=== PATIENT | female | born 1965 | race Caucasian/White ===

== ENCOUNTER 2023-02-23 21:14 | Emergency (ER) | payer BC ==
[~2023-02-23] VITALS: Ht 165.1 cm; Wt 72.6 kg
[2023-02-23 22:07] LABS: BASOPHILS % (AUTO) 0.3 % (0.0-2.0); EOSINOPHILS % (AUTO) 0.2 % (0.0-7.0); HEMATOCRIT 31.4 % (31.2-41.9); HEMOGLOBIN 10.7 g/dL (10.9-14.3); LYMPHOCYTES # (AUTO) 1.8 K/uL (0.8-4.8); LYMPHOCYTES % (AUTO) 25.5 % (20.5-51.5); MEAN CORPUSCULAR HEMOGLOBIN 33.5 uug (24.7-32.8); MEAN CORPUSCULAR HGB CONC 34 g/dL (32.3-35.6); MEAN CORPUSCULAR VOLUME 97.8 fL (75.5-95.3); MONOCYTES # (AUTO) 0.3 K/uL (0.1-1.30); MONOCYTES % (AUTO) 4.9 % (0.0-11.0); NEUTROPHILS # (AUTO) 4.9 K/uL (1.8-8.9); NEUTROPHILS % (AUTO) 69.1 % (38.5-71.5); PLATELET COUNT (AUTO) 226 K/uL (179-408); RED BLOOD CELL COUNT(AUTO) 3.21 MIL/uL (3.63-4.92); RED CELL DISTRIBUTION WIDTH 20.5 % (12.3-17.7)
[2023-02-23 22:08] LABS: DIFFERENTIAL COMMENT 1
[2023-02-23 22:19] LABS: CALCIUM 8.7 mg/dL (8.5-10.1); CREATININE 1.1 mg/dL (0.6-1.3)
[2023-02-23 22:27] LABS: BILIRUBIN,TOTAL 0.9 mg/dL (0.2-1.0); MAGNESIUM 1.4 mg/dL (1.8-2.4); TOTAL PROTEIN, SERUM 5.7 g/dL (6.4-8.2)
[2023-02-23 22:30] LABS: THYROID STIMULATING HORMONE 3.106 mIU/mL (0.358-3.740)
[2023-02-23] MEDS ORDERED: LORAZEPAM 0.5 MG TABLET ONE (22:39)
[2023-02-23] MEDS ORDERED: LORAZEPAM 0.5 MG TABLET PO ONE (22:45)
[2023-02-23] MEDS ORDERED: POTASSIUM CHLORIDE 20 MEQ TAB.PRT.SR ONE (22:59)
[2023-02-23] MEDS ORDERED: POTASSIUM CHLORIDE 20 MEQ TAB.PRT.SR PO ONE (23:00)
[2023-02-23 23:17] VITALS: BP 130/77; O2SAT 98
== END 2023-02-23 23:18 | disposition home or self-care (01) ==
LOC: ER 21:24
DX: F41.9 Anxiety disorder, unspecified (principal); E87.6 Hypokalemia; R07.89 Other chest pain; Z88.0 Allergy status to penicillin; Z88.2 Allergy status to sulfonamides; Z88.8 Allergy status to other drugs, medicaments and biological substances
CPT/HCPCS: 36415; 71045; 83690; 83735; 84443; 84484; 85025; 93005; A4606; A4663

== ENCOUNTER 2023-03-25 11:11 | Emergency (ER) | payer BC ==
[~2023-03-25] VITALS: Ht 165.1 cm; Wt 72.6 kg
[2023-03-25] MEDS ORDERED: ONDANSETRON 4 MG/2 ML VIAL ONE (11:37)
[2023-03-25] MEDS ORDERED: LORAZEPAM 2 MG/1 ML VIAL ONE (11:38)
[2023-03-25] MEDS ORDERED: LORAZEPAM 2 MG/1 ML VIAL IV ONE (12:00)
[2023-03-25] MEDS ORDERED: IV NORMAL SALINE 1000 ML BAG IV ONE ×2 (12:00→13:15)
[2023-03-25] MEDS ORDERED: ONDANSETRON 4 MG/2 ML VIAL IV ONE (12:00)
[2023-03-25 12:01] LABS: BASOPHILS % (AUTO) 0.5 % (0.0-2.0); EOSINOPHILS % (AUTO) 0.3 % (0.0-7.0); HEMATOCRIT 33.5 % (31.2-41.9); HEMOGLOBIN 11.4 g/dL (10.9-14.3); LYMPHOCYTES # (AUTO) 0.9 K/uL (0.8-4.8); LYMPHOCYTES % (AUTO) 14.7 % (20.5-51.5); MEAN CORPUSCULAR HGB CONC 34 g/dL (32.3-35.6); MEAN CORPUSCULAR VOLUME 97.3 fL (75.5-95.3); MONOCYTES # (AUTO) 0.5 K/uL (0.1-1.30); NEUTROPHILS # (AUTO) 4.5 K/uL (1.8-8.9); NEUTROPHILS % (AUTO) 76.5 % (38.5-71.5); PLATELET COUNT (AUTO) 310 K/uL (179-408); RED BLOOD CELL COUNT(AUTO) 3.45 MIL/uL (3.63-4.92); RED CELL DISTRIBUTION WIDTH 18.7 % (12.3-17.7); WHITE BLOOD COUNT (AUTO) 5.9 K/uL (3.8-11.8)
[2023-03-25 12:12] LABS: CALCIUM 8.7 mg/dL (8.5-10.1); DIFFERENTIAL COMMENT 1; POTASSIUM 3.1 mmol/L (3.5-5.1)
[2023-03-25 12:18] LABS: ALBUMIN 3.1 g/dL (3.4-5.0); MAGNESIUM 1.4 mg/dL (1.8-2.4); TOTAL PROTEIN, SERUM 6.3 g/dL (6.4-8.2)
[2023-03-25] MEDS ORDERED: MAGNESIUM SULFATE/D5W 400 ML ONE (13:07)
[2023-03-25] MEDS ORDERED: POTASSIUM BICARBONATE/CIT AC 25 MEQ TABLET.EFF ONE (13:08)
[2023-03-25] MEDS ORDERED: MAGNESIUM SULFATE/D5W 100 ML IV ONE (13:15)
[2023-03-25] MEDS ORDERED: POTASSIUM BICARBONATE/CIT AC 25 MEQ TABLET.EFF PO ONE (13:15)
[2023-03-25] MEDS ORDERED: LOPERAMIDE HCL 2 MG CAPSULE PO ONE (15:00)
[2023-03-25] MEDS ORDERED: LOPERAMIDE HCL 2 MG CAPSULE ONE (15:05)
[2023-03-25] MEDS ORDERED: FOLI1TAB27 PO (15:52)
[2023-03-25] MEDS ORDERED: MAGN400T26 PO (15:52)
[2023-03-25] MEDS ORDERED: LOPE2TAB25 PO (15:52)
[2023-03-25] MEDS ORDERED: ONDA4TAB5 PO (15:52)
[2023-03-25 17:48] VITALS: BP 140/77; TEMP 98; O2SAT 98
== END 2023-03-25 17:50 | disposition home or self-care (01) ==
LOC: ER 11:11
DX: R11.2 Nausea with vomiting, unspecified (principal); R19.7 Diarrhea, unspecified; E78.00 Pure hypercholesterolemia, unspecified; F41.9 Anxiety disorder, unspecified; F17.200 Nicotine dependence, unspecified, uncomplicated; Z79.899 Other long term (current) drug therapy; Z88.0 Allergy status to penicillin; Z88.2 Allergy status to sulfonamides
CPT/HCPCS: 99284; 96365; 96366; 96375; 96361; 80053; 83735; 85025; 84484; 36415; 93005; J2060; J3475; J2405; J7040 ×2; A4606; A4663

== ENCOUNTER 2024-03-14 18:49 | Inpatient (IN) | payer BC ==
[~2024-03-14] VITALS: Ht 165.1 cm; Wt 77.1 kg
[~2024-03-14 18:49] MED LIST: FOLI1TAB27 PO; LOPE2TAB25 PO; MAGN400T26 PO; ONDA4TAB5 PO
[2024-03-14] MEDS: ETOMIDATE 20 MG/10 ML VIAL IV ONE (19:07)
[2024-03-14] MEDS: SUCCINYLCHOLINE CHLORIDE 200 MG/10 ML VIAL IV ONE (19:08)
[2024-03-14] MEDS ORDERED: PROPOFOL 100 ML ONE (19:12)
[2024-03-14] MEDS ORDERED: CLON1TAB12 PO (19:19)
[2024-03-14] MEDS ORDERED: FLUO40CA49 PO (19:19)
[2024-03-14] MEDS ORDERED: PROP80CA51 PO (19:19)
[2024-03-14] MEDS ORDERED: OLAN15TA3 PO (19:19)
[2024-03-14] MEDS: PROPOFOL 100 ML IV ONE (19:25)
[2024-03-14 19:41] LABS: BASOPHILS % (AUTO) 0.3 % (0.0-2.0); HEMATOCRIT 36.3 % (31.2-41.9); LYMPHOCYTES # (AUTO) 0.7 K/uL (0.8-4.8); LYMPHOCYTES % (AUTO) 5.2 % (20.5-51.5); MEAN CORPUSCULAR HEMOGLOBIN 29.8 uug (24.7-32.8); MEAN CORPUSCULAR HGB CONC 33 g/dL (32.3-35.6); MEAN CORPUSCULAR VOLUME 90.5 fL (75.5-95.3); MONOCYTES # (AUTO) 1.1 K/uL (0.1-1.30); MONOCYTES % (AUTO) 8.4 % (0.0-11.0); NEUTROPHILS # (AUTO) 11.6 K/uL (1.8-8.9); NEUTROPHILS % (AUTO) 86.1 % (38.5-71.5); PLATELET COUNT (AUTO) 270 K/uL (179-408); RED BLOOD CELL COUNT(AUTO) 4.01 MIL/uL (3.63-4.92); RED CELL DISTRIBUTION WIDTH 16.3 % (12.3-17.7); WHITE BLOOD COUNT (AUTO) 13.4 K/uL (3.8-11.8)
[2024-03-14 19:44] LABS: DIFFERENTIAL COMMENT 1
[2024-03-14 19:48] LABS: CALCIUM 9.1 mg/dL (8.5-10.1); CARBON DIOXIDE 31 mmol/L (21-32); CHLORIDE 103 mmol/L (98-107); CREATININE 1.4 mg/dL (0.6-1.3); GLUCOSE 114 mg/dL (74-106); POTASSIUM 4.3 mmol/L (3.5-5.1); SODIUM SERUM 143 mmol/L (136-145); UREA NITROGEN, BLOOD 19 mg/dL (7-18)
[2024-03-14 20:01] LABS: ALANINE AMINOTRANSFERASE 23 U/L (14-59); ALBUMIN 3.4 g/dL (3.4-5.0); ALKALINE PHOSPHATASE 101 U/L (50-136); ASPARTATE AMINOTRANSFERASE 16 U/L (15-37); BILIRUBIN,DIRECT 0.2 mg/dL (0.0-0.2); BILIRUBIN,TOTAL 0.6 mg/dL (0.2-1.0); NT-PRO BNP 199 pg/mL (0-125); TOTAL PROTEIN, SERUM 7.3 g/dL (6.4-8.2)
[2024-03-14] MEDS ORDERED: levoFLOXacin 500 MG/D5W 100 ML ONE (20:04)
[2024-03-14 20:07] LABS: ABG BASE EXCESS 3.2 mmol/L (-2.0-3.0); ABG HCO3 27.1 mmol/L (21.0-28.0); ABG PCO2 38.6 mmHg (32.0-45.0); ABG PH 7.464 (7.350-7.450); ABG PO2 77.3 mmHg (83.0-108.0); ABG SITE RIGHT RADIAL; ABG TOTAL HEMOGLOBIN 13.2 G/dL (12.0-16.0); AaDO2 96.1 mmHg; COHb 0.2 % (0.5-1.5); MetHb 0.2 % (0.0-1.5); O2Hb 95.5 % (94.0-98.0); VT, ABG 500 mL
[2024-03-14] MEDS: levoFLOXacin 750MG/D5W 150 ML IV ONE (20:20)
[2024-03-14] MEDS: IV NORMAL SALINE 1000 ML BAG IV ONE (20:20)
[2024-03-14 23:05] LABS: *BILIRUBIN,URIN NEGATIVE (NEGATIVE); *BLOOD, URINE NEGATIVE (NEGATIVE); *CLARITY,URINE CLEAR (CLEAR); *COLOR,URINE YELLOW (YELLOW); *KETONES,URINE NEGATIVE (NEGATIVE); *PROTEIN,URINE 1+ (NEGATIVE); *UROBILINOGEN,URINE 0.2 E.U./dl (NORMAL); LEUKOCYTE ESTERASE ,URINE NEGATIVE (NEGATIVE); NITRITE, URINE NEGATIVE (NEGATIVE); UGLUCOSE NEGATIVE (NEGATIVE)
[2024-03-14 23:23] LABS: BACTERIA,URINE FEW /HPF (NONE SEEN); RBC,URINE NONE SEEN /HPF (0-3); WBC,URINE 0-3 /HPF (0-3)
[2024-03-14 23:24] LABS: SQUAMOUS EPITHELIAL CELL,UR MODERATE /HPF (NONE SEEN)
[2024-03-15 01:03] LABS: *AMPHETAMINE, URINE NEGATIVE (NEGATIVE); *BARBITURATE, URINE NEGATIVE (NEGATIVE); *BENZODIAZEPINE, URINE POSITIVE (NEGATIVE); *CANNABINOID, URINE NEGATIVE (NEGATIVE); *COCCAINE, URINE NEGATIVE (NEGATIVE); *OPIATE, URINE POSITIVE (NEGATIVE); *PHENCYCLIDINE SCREEN,URINE NEGATIVE (NEGATIVE); FENTANYL, URINE NEGATIVE (NEGATIVE)
[2024-03-15 01:07] LABS: AMMONIA < 10 umol/L (11-32)
[2024-03-15 01:10] LABS: ETHANOL < 3 MG/DL (0-10)
[2024-03-15 01:19] LABS: ACETAMINOPHEN < 10.0 ug/mL (10-30)
[2024-03-15] MEDS ORDERED: PROPOFOL 100 ML ONE ×2 (05:12→20:43)
[2024-03-15 06:01] LABS: ABG BASE EXCESS 1.3 mmol/L (-2.0-3.0); ABG HCO3 24.6 mmol/L (21.0-28.0); ABG PCO2 34.2 mmHg (32.0-45.0); ABG PH 7.474 (7.350-7.450); ABG PO2 109.2 mmHg (83.0-108.0); ABG SITE RIGHT RADIAL; AaDO2 98.3 mmHg; COHb 0.3 % (0.5-1.5); MetHb 0.3 % (0.0-1.5); O2Hb 97.6 % (94.0-98.0); VT, ABG 500 mL
[2024-03-15] MEDS: PROPOFOL 50 ML IV PRN (07:15)
[2024-03-15] MEDS: IV D5 1/2 NS 1000 ML 1,000 ML IV PRN (07:30)
[2024-03-15] MEDS ORDERED: FAMOTIDINE. 20 MG/2 ML VIAL IV SCH (09:00)
[2024-03-15] MEDS ORDERED: PANTOPRAZOLE SODIUM 40 MG VIAL ONE (09:08)
[2024-03-15] MEDS ORDERED: ENOXAPARIN SODIUM 40 MG/0.4 ML DISP.SYRIN SQ ONE (09:08)
[2024-03-15] MEDS: ENOXAPARIN SODIUM 40 MG/0.4 ML DISP.SYRIN SQ SCH (09:13)
[2024-03-15] MEDS: PANTOPRAZOLE SODIUM 40 MG VIAL IV SCH (09:14)
[2024-03-15 09:45] LABS: BASOPHILS % (AUTO) 0.2 % (0.0-2.0); DIFFERENTIAL COMMENT 0; HEMATOCRIT 34.3 % (31.2-41.9); HEMOGLOBIN 11.6 g/dL (10.9-14.3); LYMPHOCYTES # (AUTO) 0.7 K/uL (0.8-4.8); LYMPHOCYTES % (AUTO) 6.1 % (20.5-51.5); MEAN CORPUSCULAR HEMOGLOBIN 30.4 uug (24.7-32.8); MEAN CORPUSCULAR HGB CONC 34 g/dL (32.3-35.6); MEAN CORPUSCULAR VOLUME 90.3 fL (75.5-95.3); MONOCYTES # (AUTO) 1.1 K/uL (0.1-1.30); MONOCYTES % (AUTO) 8.9 % (0.0-11.0); NEUTROPHILS # (AUTO) 10.1 K/uL (1.8-8.9); NEUTROPHILS % (AUTO) 84.8 % (38.5-71.5); PLATELET COUNT (AUTO) 188 K/uL (179-408); RED CELL DISTRIBUTION WIDTH 16.4 % (12.3-17.7); WHITE BLOOD COUNT (AUTO) 11.9 K/uL (3.8-11.8)
[2024-03-15 10:01] LABS: ALBUMIN 2.8 g/dL (3.4-5.0); BILIRUBIN,TOTAL 0.7 mg/dL (0.2-1.0); CALCIUM 8.2 mg/dL (8.5-10.1); CREATININE 1.2 mg/dL (0.6-1.3); PHOSPHOROUS 2.9 mg/dL (2.5-4.9); POTASSIUM 3.4 mmol/L (3.5-5.1); TOTAL PROTEIN, SERUM 6.4 g/dL (6.4-8.2)
[2024-03-15 10:33] LABS: THYROID STIMULATING HORMONE 1.251 mIU/mL (0.358-3.740)
[2024-03-15] MEDS ORDERED: FOLIC ACID 1 MG TABLET ONE (12:24)
[2024-03-15] MEDS ORDERED: THIAMINE HCL 100 MG TABLET ONE (12:24)
[2024-03-15] MEDS: FOLIC ACID 1 MG TABLET NG SCH (12:28)
[2024-03-15] MEDS: THIAMINE HCL 100 MG TABLET NG SCH (12:28)
[2024-03-16 05:21] LABS: BASOPHILS % (AUTO) 0.1 % (0.0-2.0); HEMATOCRIT 32.3 % (31.2-41.9); HEMOGLOBIN 10.8 g/dL (10.9-14.3); LYMPHOCYTES % (AUTO) 8.4 % (20.5-51.5); MEAN CORPUSCULAR HEMOGLOBIN 29.9 uug (24.7-32.8); MEAN CORPUSCULAR HGB CONC 33 g/dL (32.3-35.6); MEAN CORPUSCULAR VOLUME 89.7 fL (75.5-95.3); MONOCYTES # (AUTO) 1.1 K/uL (0.1-1.30); MONOCYTES % (AUTO) 8.7 % (0.0-11.0); NEUTROPHILS # (AUTO) 10.1 K/uL (1.8-8.9); NEUTROPHILS % (AUTO) 82.8 % (38.5-71.5); PLATELET COUNT (AUTO) 164 K/uL (179-408); RED CELL DISTRIBUTION WIDTH 15.9 % (12.3-17.7); WHITE BLOOD COUNT (AUTO) 12.2 K/uL (3.8-11.8)
[2024-03-16 05:42] LABS: CALCIUM 8.6 mg/dL (8.5-10.1); CREATININE 1.1 mg/dL (0.6-1.3); MAGNESIUM 1.9 mg/dL (1.8-2.4); PHOSPHOROUS 2.5 mg/dL (2.5-4.9); POTASSIUM 3.2 mmol/L (3.5-5.1)
[2024-03-16 05:52] LABS: C-REACTIVE PROTEIN 13.81 mg/dL (0.00-0.30)
[2024-03-16 06:06] LABS: ABG BASE EXCESS 0.1 mmol/L (-2.0-3.0); ABG HCO3 23.1 mmol/L (21.0-28.0); ABG PH 7.476 (7.350-7.450); ABG PO2 73.8 mmHg (83.0-108.0); ABG SITE RIGHT RADIAL; ABG TOTAL HEMOGLOBIN 11.4 G/dL (12.0-16.0); AaDO2 95.9 mmHg; COHb 0.3 % (0.5-1.5); MetHb 0.3 % (0.0-1.5); O2Hb 94.4 % (94.0-98.0); VT, ABG 500 mL
[2024-03-16] MEDS ORDERED: ENOXAPARIN SODIUM 40 MG/0.4 ML DISP.SYRIN SQ ONE (08:34)
[2024-03-16] MEDS ORDERED: FOLIC ACID 1 MG TABLET ONE (08:34)
[2024-03-16] MEDS ORDERED: PANTOPRAZOLE SODIUM 40 MG VIAL ONE (08:34)
[2024-03-16] MEDS ORDERED: MEROPENEM 1GM/NS 100ML IVPB **ER PYXIS ONLY IV ONE (08:35)
[2024-03-16] MEDS ORDERED: POTASSIUM CHLORIDE 20 MEQ POWDER PACKET ONE (08:35)
[2024-03-16] MEDS ORDERED: THIAMINE HCL 100 MG TABLET ONE (08:35)
[2024-03-16] MEDS: POTASSIUM CHLORIDE 20 MEQ POWDER PACKET GT ONE (09:05)
[2024-03-16] MEDS: MEROPENEM 1 G in IV NORMAL SALINE 100 ML IV SCH (09:06)
[2024-03-16] MEDS ORDERED: PROPOFOL 100 ML ONE ×2 (13:04→22:47)
[2024-03-16] MEDS: PROPOFOL 100 ML IV PRN (22:49)
[2024-03-17] VITALS (13 sets, daily range): BP systolic 102–135; BP diastolic 46–70; TEMP 97.9–99.4; O2SAT 94–99
[2024-03-17] MEDS ORDERED: LORAZEPAM 2 MG/1 ML VIAL ONE (03:41)
[2024-03-17 05:12] LABS: BASOPHILS % (AUTO) 0.1 % (0.0-2.0); HEMATOCRIT 28.6 % (31.2-41.9); HEMOGLOBIN 9.6 g/dL (10.9-14.3); LYMPHOCYTES # (AUTO) 1.1 K/uL (0.8-4.8); LYMPHOCYTES % (AUTO) 10.9 % (20.5-51.5); MEAN CORPUSCULAR HEMOGLOBIN 30.4 uug (24.7-32.8); MEAN CORPUSCULAR HGB CONC 34 g/dL (32.3-35.6); MEAN CORPUSCULAR VOLUME 90.3 fL (75.5-95.3); MONOCYTES # (AUTO) 0.7 K/uL (0.1-1.30); MONOCYTES % (AUTO) 6.6 % (0.0-11.0); NEUTROPHILS # (AUTO) 8.3 K/uL (1.8-8.9); NEUTROPHILS % (AUTO) 82.4 % (38.5-71.5); PLATELET COUNT (AUTO) 161 K/uL (179-408); RED BLOOD CELL COUNT(AUTO) 3.17 MIL/uL (3.63-4.92); RED CELL DISTRIBUTION WIDTH 16.1 % (12.3-17.7)
[2024-03-17] MEDS ORDERED: NOREPINEPHRINE 8MG/NS 250ML 250 ML IV ONE (05:16)
[2024-03-17 05:24] LABS: DIFFERENTIAL COMMENT 1
[2024-03-17 05:29] LABS: BILIRUBIN,DIRECT 0.1 mg/dL (0.0-0.2); BILIRUBIN,TOTAL 0.5 mg/dL (0.2-1.0); CALCIUM 8.1 mg/dL (8.5-10.1); CREATININE 1.2 mg/dL (0.6-1.3); PHOSPHOROUS 2.8 mg/dL (2.5-4.9); POTASSIUM 3.5 mmol/L (3.5-5.1); TOTAL PROTEIN, SERUM 5.7 g/dL (6.4-8.2)
[2024-03-17] MEDS: NOREPINEPHRINE 8MG/NS 250ML 250 ML IV PRN (05:33)
[2024-03-17 06:17] LABS: ABG BASE EXCESS -0.4 mmol/L (-2.0-3.0); ABG HCO3 23.1 mmol/L (21.0-28.0); ABG PO2 73.5 mmHg (83.0-108.0); ABG SITE RIGHT RADIAL; ABG TOTAL HEMOGLOBIN 12.2 G/dL (12.0-16.0); AaDO2 95.5 mmHg; COHb 0.3 % (0.5-1.5); O2Hb 94.8 % (94.0-98.0); VT, ABG 500 mL
[2024-03-17] MEDS ORDERED: DC PROPOFOL ONCE EXTUBATED XX PRN (08:00)
[2024-03-17] MEDS ORDERED: THIAMINE HCL 100 MG TABLET ONE (08:47)
[2024-03-17] MEDS ORDERED: FOLIC ACID 1 MG TABLET ONE (08:47)
[2024-03-17] MEDS ORDERED: ENOXAPARIN SODIUM 40 MG/0.4 ML DISP.SYRIN SQ ONE (08:47)
[2024-03-17] MEDS ORDERED: PANTOPRAZOLE SODIUM 40 MG VIAL ONE (08:47)
[2024-03-17] MEDS ORDERED: POTASSIUM CHLORIDE 50 ML ONE ×2 (08:47→09:15)
[2024-03-17] MEDS: POTASSIUM CHLORIDE 50 ML IV SCH (08:59)
[2024-03-17] MEDS ORDERED: AZITHROMYCIN 250 MG TABLET PO SCH (13:45)
[2024-03-17] MEDS: AZITHROMYCIN IV 500 MG in IV DEXTROSE 5% 250 ML IV SCH (15:14)
[2024-03-17 15:42] LABS: HIV-1 p24 ANTIGEN NON REACTIVE (NONREACTIVE); HIV-1/2 ANTIBODY NON REACTIVE (NONREACTIVE)
[2024-03-17] MEDS ORDERED: ACETAMINOPHEN 650 MG SUPP.RECT RC ONE (17:13)
[2024-03-17] MEDS: ACETAMINOPHEN 650 MG SUPP.RECT RC PRN (17:24)
[2024-03-18] MEDS ORDERED: MEROPENEM 1GM/NS 100ML IVPB **ER PYXIS ONLY IV ONE (01:34)
[2024-03-18] MEDS: LORAZEPAM 2 MG/1 ML VIAL IV PRN (03:23)
[2024-03-18 03:42] VITALS: BP 140/77; TEMP 98.4; O2SAT 96
[2024-03-18] MEDS ORDERED: ONDANSETRON 4 MG/2 ML VIAL IV PRN (04:00)
[2024-03-18 06:10] LABS: ABG BASE EXCESS 1.7 mmol/L (-2.0-3.0); ABG HCO3 25.9 mmol/L (21.0-28.0); ABG PCO2 38.9 mmHg (32.0-45.0); ABG PH 7.441 (7.350-7.450); ABG PO2 43.4 mmHg (83.0-108.0); ABG SITE LEFT BRACHIAL; ABG TOTAL HEMOGLOBIN 9.8 G/dL (12.0-16.0); AaDO2 81.2 mmHg; COHb 0.3 % (0.5-1.5); MetHb 0.1 % (0.0-1.5); O2Hb 80.5 % (94.0-98.0)
[2024-03-18 07:43] LABS: BASOPHILS % (AUTO) 0.1 % (0.0-2.0); HEMATOCRIT 27.5 % (31.2-41.9); HEMOGLOBIN 9.3 g/dL (10.9-14.3); LYMPHOCYTES % (AUTO) 13.3 % (20.5-51.5); MEAN CORPUSCULAR HEMOGLOBIN 30.7 uug (24.7-32.8); MEAN CORPUSCULAR HGB CONC 34 g/dL (32.3-35.6); MEAN CORPUSCULAR VOLUME 90.4 fL (75.5-95.3); MONOCYTES # (AUTO) 0.7 K/uL (0.1-1.30); MONOCYTES % (AUTO) 9.5 % (0.0-11.0); NEUTROPHILS # (AUTO) 5.6 K/uL (1.8-8.9); NEUTROPHILS % (AUTO) 77.1 % (38.5-71.5); PLATELET COUNT (AUTO) 194 K/uL (179-408); RED BLOOD CELL COUNT(AUTO) 3.04 MIL/uL (3.63-4.92); RED CELL DISTRIBUTION WIDTH 15.9 % (12.3-17.7); WHITE BLOOD COUNT (AUTO) 7.3 K/uL (3.8-11.8)
[2024-03-18 07:57] LABS: CALCIUM 8.7 mg/dL (8.5-10.1); CREATININE 0.9 mg/dL (0.6-1.3); DIFFERENTIAL COMMENT 1; MAGNESIUM 1.9 mg/dL (1.8-2.4); PHOSPHOROUS 2.9 mg/dL (2.5-4.9); POTASSIUM 3.2 mmol/L (3.5-5.1)
[2024-03-18 08:00] VITALS: BP 121/78; TEMP 97.8; O2SAT 96
[2024-03-18] MEDS: POTASSIUM CHLORIDE 20 MEQ POWDER PACKET PO ONE (08:55)
[2024-03-18 09:59] VITALS: BP 132/65; TEMP 98.8; O2SAT 100
[2024-03-18 12:00] VITALS: BP 136/71; TEMP 98.7; O2SAT 100
[2024-03-18] MEDS: AZITHROMYCIN 250 MG TABLET PO SCH (15:31)
[2024-03-18 16:00] VITALS: BP 132/68; TEMP 98.6; O2SAT 99
[2024-03-19] MEDS: GUAIFENESIN/DEXTROMETHORPHAN 5 ML UDC PO PRN (03:26)
[2024-03-19 05:54] VITALS: BP_SYST 132; BP_SYST 160; BP_DIAS 70; BP_DIAS 76; TEMP 97.9; O2SAT 97
[2024-03-19 06:55] LABS: BASOPHILS % (AUTO) 0.2 % (0.0-2.0); HEMOGLOBIN 10.3 g/dL (10.9-14.3); LYMPHOCYTES # (AUTO) 1.3 K/uL (0.8-4.8); LYMPHOCYTES % (AUTO) 20.4 % (20.5-51.5); MEAN CORPUSCULAR HEMOGLOBIN 31.2 uug (24.7-32.8); MEAN CORPUSCULAR HGB CONC 34 g/dL (32.3-35.6); MEAN CORPUSCULAR VOLUME 90.7 fL (75.5-95.3); MONOCYTES # (AUTO) 0.6 K/uL (0.1-1.30); MONOCYTES % (AUTO) 9.8 % (0.0-11.0); NEUTROPHILS # (AUTO) 4.5 K/uL (1.8-8.9); NEUTROPHILS % (AUTO) 69.6 % (38.5-71.5); PLATELET COUNT (AUTO) 225 K/uL (179-408); RED BLOOD CELL COUNT(AUTO) 3.31 MIL/uL (3.63-4.92); RED CELL DISTRIBUTION WIDTH 15.4 % (12.3-17.7); WHITE BLOOD COUNT (AUTO) 6.4 K/uL (3.8-11.8)
[2024-03-19 07:08] VITALS: BP 125/68; TEMP 97.8; O2SAT 98
[2024-03-19 07:22] LABS: DIFFERENTIAL COMMENT 1
[2024-03-19 07:29] LABS: CALCIUM 8.8 mg/dL (8.5-10.1); MAGNESIUM 2.2 mg/dL (1.8-2.4); POTASSIUM 3.5 mmol/L (3.5-5.1)
[2024-03-19] MEDS: POTASSIUM CHLORIDE 20 MEQ TAB.PRT.SR PO ONE (10:10)
[2024-03-19 12:00] VITALS: BP 111/66; TEMP 97; O2SAT 97
[2024-03-19 16:00] VITALS: BP 120/72; TEMP 97; O2SAT 97
[2024-03-19] MEDS: BENZOCAINE/MENTH/CETYLPYRD LOZENGE MM PRN (17:17)
[2024-03-19] MEDS: CLONAZEPAM 0.5 MG TABLET PO PRN (21:32)
[2024-03-20] MEDS ORDERED: ZOLPIDEM 5 MG TABLET PO PRN (00:30)
[2024-03-20] MEDS: ZOLPIDEM 5 MG TABLET PO PRN (01:20)
[2024-03-20 02:06] LABS: HEPATITIS B CORE AB, TOTAL Negative (Negative); HEPATITIS B SURFACE AG Negative (Negative); HEPATITIS C VIRUS ANTIBODY Non Reactive (Non Reactive)
[2024-03-20 04:30] VITALS: BP 138/59; TEMP 99.3; O2SAT 92
[2024-03-20 06:37] LABS: BASOPHILS % (AUTO) 0.3 % (0.0-2.0); HEMATOCRIT 28.3 % (31.2-41.9); HEMOGLOBIN 9.6 g/dL (10.9-14.3); LYMPHOCYTES # (AUTO) 1.6 K/uL (0.8-4.8); LYMPHOCYTES % (AUTO) 26.2 % (20.5-51.5); MEAN CORPUSCULAR HEMOGLOBIN 30.5 uug (24.7-32.8); MEAN CORPUSCULAR HGB CONC 34 g/dL (32.3-35.6); MEAN CORPUSCULAR VOLUME 89.6 fL (75.5-95.3); MONOCYTES # (AUTO) 0.6 K/uL (0.1-1.30); MONOCYTES % (AUTO) 10.1 % (0.0-11.0); NEUTROPHILS # (AUTO) 3.8 K/uL (1.8-8.9); NEUTROPHILS % (AUTO) 63.4 % (38.5-71.5); PLATELET COUNT (AUTO) 248 K/uL (179-408); RED BLOOD CELL COUNT(AUTO) 3.16 MIL/uL (3.63-4.92); RED CELL DISTRIBUTION WIDTH 15.2 % (12.3-17.7)
[2024-03-20 06:50] LABS: CALCIUM 8.8 mg/dL (8.5-10.1); CREATININE 1.1 mg/dL (0.6-1.3); PHOSPHOROUS 2.8 mg/dL (2.5-4.9); POTASSIUM 3.7 mmol/L (3.5-5.1)
[2024-03-20 08:27] LABS: DIFFERENTIAL COMMENT 1
[2024-03-20] MEDS: ESCITALOPRAM OXALATE 10 MG TABLET PO SCH (08:44)
[2024-03-20] MEDS ORDERED: GUAI5SYR PO (11:32)
[2024-03-20] MEDS ORDERED: PANT40TA49 PO (11:32)
[2024-03-20] MEDS ORDERED: THIA100T13 NG (11:32)
[2024-03-20] MEDS ORDERED: ESCI-9 PO (11:32)
[2024-03-20] MEDS ORDERED: FOLI1TAB94 PO (11:32)
[2024-03-20] MEDS ORDERED: CLON0.5T4 PO (11:32)
[2024-03-20 16:01] VITALS: BP 139/72; TEMP 98; O2SAT 97
[2024-03-20 19:00] VITALS: BP 141/76; TEMP 98.1; O2SAT 96
[2024-03-21] VITALS: BP 155/72; TEMP 97.8; O2SAT 98
[2024-03-21 04:00] VITALS: BP 145/75; TEMP 97.8; O2SAT 98
[2024-03-21 06:00] VITALS: BP 151/67; TEMP 98.2; O2SAT 96
[2024-03-21] MEDS: PANTOPRAZOLE SODIUM 40 MG TABLET.DR PO SCH (06:17)
[2024-03-21 11:15] VITALS: BP 140/93; TEMP 98.6; O2SAT 96
== END 2024-03-21 12:45 | DRG 917 ==
LOC: ER 18:49 → TRANSITION 03-15 01:24 → TELE3 03-18 02:28
PROVIDERS: ADMIT Internal Medicine; ATTEND Internal Medicine
PROC: 5A1945Z Respiratory Ventilation, 24-96 Consecutive Hours (ICD-10-PCS; principal; 2024-03-15)
PROC: 0BH17EZ Insertion of Endotracheal Airway into Trachea, Via Natural or Artificial Opening (ICD-10-PCS; 2024-03-15)
DX: T42.4X2A Poisoning by benzodiazepines, intentional self-harm, initial encounter (principal); G92.8 Other toxic encephalopathy; J96.01 Acute respiratory failure with hypoxia; J69.0 Pneumonitis due to inhalation of food and vomit; J96.02 Acute respiratory failure with hypercapnia; N17.0 Acute kidney failure with tubular necrosis; R40.2A Nontraumatic coma due to underlying condition; F33.2 Major depressive disorder, recurrent severe without psychotic features; E87.0 Hyperosmolality and hypernatremia; J98.11 Atelectasis; T51.0X2A Toxic effect of ethanol, intentional self-harm, initial encounter; Y92.009 Unspecified place in unspecified non-institutional (private) residence as the place of occurrence of the external cause; T50.912A Poisoning by multiple unspecified drugs, medicaments and biological substances, intentional self-harm, initial encounter; Z81.1 Family history of alcohol abuse and dependence; F10.20 Alcohol dependence, uncomplicated; Z88.0 Allergy status to penicillin; Z87.891 Personal history of nicotine dependence; Z63.4 Disappearance and death of family member; Z88.2 Allergy status to sulfonamides; Z88.8 Allergy status to other drugs, medicaments and biological substances; E87.6 Hypokalemia; F41.9 Anxiety disorder, unspecified; J20.9 Acute bronchitis, unspecified; F43.21 Adjustment disorder with depressed mood; E78.5 Hyperlipidemia, unspecified; E66.9 Obesity, unspecified; Z68.28 Body mass index [BMI] 28.0-28.9, adult; D64.9 Anemia, unspecified
CPT/HCPCS: 36415; 36600; 70450; 71045; 82803; 83605; 83690; 83735; 84100; 84443; 84484; 85025; 85730; 86140; 86704; 86803; 87040; 87340; 87806; 94002; 94003; 99082-TC; A4606; A4663; G0378; G0480; J0330; J0456; J1650; J1956; J2060; J2185; J2470; J3480; J3490; J7040; J7050; Q0144

== ENCOUNTER 2024-03-30 07:58 | Inpatient (IN) | payer BC ==
[~2024-03-30] VITALS: Ht 165.1 cm; Wt 77.1 kg
[~2024-03-30 07:58] MED LIST changes: +CLON0.5T4 PO; +ESCI-9 PO; -FOLI1TAB27 PO; +FOLI1TAB94 PO; +GUAI5SYR PO; -LOPE2TAB25 PO; -MAGN400T26 PO; -ONDA4TAB5 PO; +PANT40TA49 PO; +THIA100T13 NG
[2024-03-30] MEDS ORDERED: CLON1TAB12 PO (08:27)
[2024-03-30] MEDS ORDERED: ATOR40TA PO (08:27)
[2024-03-30] MEDS ORDERED: TRAZ-252 PO (08:27)
[2024-03-30] MEDS ORDERED: PROP80CA2 PO (08:27)
[2024-03-30 08:47] LABS: BASOPHILS # (AUTO) 0.1 K/UL (0.0-0.2); BASOPHILS % (AUTO) 0.6 % (0.0-2.0); HEMATOCRIT 33.3 % (31.2-41.9); HEMOGLOBIN 11.3 g/dL (10.9-14.3); LYMPHOCYTES # (AUTO) 1.2 K/uL (0.8-4.8); LYMPHOCYTES % (AUTO) 12.2 % (20.5-51.5); MEAN CORPUSCULAR HEMOGLOBIN 30.5 uug (24.7-32.8); MEAN CORPUSCULAR HGB CONC 34 g/dL (32.3-35.6); MEAN CORPUSCULAR VOLUME 89.7 fL (75.5-95.3); MONOCYTES # (AUTO) 0.6 K/uL (0.1-1.30); MONOCYTES % (AUTO) 5.7 % (0.0-11.0); NEUTROPHILS # (AUTO) 8.2 K/uL (1.8-8.9); NEUTROPHILS % (AUTO) 81.5 % (38.5-71.5); PLATELET COUNT (AUTO) 557 K/uL (179-408); RED BLOOD CELL COUNT(AUTO) 3.71 MIL/uL (3.63-4.92); RED CELL DISTRIBUTION WIDTH 15.2 % (12.3-17.7); WHITE BLOOD COUNT (AUTO) 10.1 K/uL (3.8-11.8)
[2024-03-30 08:50] LABS: DIFFERENTIAL COMMENT 1
[2024-03-30 08:59] LABS: CARBON DIOXIDE 27 mmol/L (21-32); CHLORIDE 102 mmol/L (98-107); CREATININE 1.3 mg/dL (0.6-1.3); GLUCOSE 87 mg/dL (74-106); SODIUM SERUM 144 mmol/L (136-145); UREA NITROGEN, BLOOD 21 mg/dL (7-18)
[2024-03-30 09:02] LABS: AMMONIA < 10 umol/L (11-32)
[2024-03-30 09:04] LABS: ETHANOL < 3 MG/DL (0-10)
[2024-03-30 09:14] LABS: ALANINE AMINOTRANSFERASE 23 U/L (14-59); ALBUMIN 3.2 g/dL (3.4-5.0); ALKALINE PHOSPHATASE 91 U/L (50-136); ASPARTATE AMINOTRANSFERASE 38 U/L (15-37); BILIRUBIN,DIRECT 0.1 mg/dL (0.0-0.2); BILIRUBIN,TOTAL 0.8 mg/dL (0.2-1.0)
[2024-03-30 09:16] LABS: ACETAMINOPHEN < 10.0 ug/mL (10-30)
[2024-03-30] MEDS ORDERED: REMEDY ESSENTIAL ZINC PASTE 113 GM TP PRN (10:00)
[2024-03-30] MEDS ORDERED: ONDANSETRON 4 MG/2 ML VIAL IV PRN (10:00)
[2024-03-30] MEDS ORDERED: LORAZEPAM 2 MG/1 ML VIAL IV PRN (10:00)
[2024-03-30] MEDS ORDERED: ACETAMINOPHEN 325 MG TABLET PO PRN (10:00)
[2024-03-30] MEDS ORDERED: MAGNESIUM HYDROXIDE 30 ML LIQUID UDC PO PRN (10:00)
[2024-03-30 11:51] LABS: *BILIRUBIN,URIN 1+ (NEGATIVE); *BLOOD, URINE NEGATIVE (NEGATIVE); *CLARITY,URINE CLEAR (CLEAR); *COLOR,URINE YELLOW (YELLOW); *KETONES,URINE 3+ (NEGATIVE); *PROTEIN,URINE TRACE (NEGATIVE); *UROBILINOGEN,URINE 0.2 E.U./dl (NORMAL); LEUKOCYTE ESTERASE ,URINE TRACE (NEGATIVE); NITRITE, URINE NEGATIVE (NEGATIVE); UGLUCOSE NEGATIVE (NEGATIVE)
[2024-03-30 12:00] LABS: BACTERIA,URINE FEW /HPF (NONE SEEN); SQUAMOUS EPITHELIAL CELL,UR FEW /HPF (NONE SEEN)
[2024-03-30 12:11] LABS: *AMPHETAMINE, URINE NEGATIVE (NEGATIVE); *BARBITURATE, URINE NEGATIVE (NEGATIVE); *BENZODIAZEPINE, URINE POSITIVE (NEGATIVE); *CANNABINOID, URINE NEGATIVE (NEGATIVE); *COCCAINE, URINE NEGATIVE (NEGATIVE); *OPIATE, URINE NEGATIVE (NEGATIVE); *PHENCYCLIDINE SCREEN,URINE NEGATIVE (NEGATIVE); FENTANYL, URINE NEGATIVE (NEGATIVE)
[2024-03-30] MEDS: IV NORMAL SALINE 1000 ML BAG IV ONE ×2 (14:11→15:20)
[2024-03-30 14:22] LABS: BASOPHILS % (AUTO) 0.4 % (0.0-2.0); EOSINOPHILS % (AUTO) 0.1 % (0.0-7.0); HEMATOCRIT 29.7 % (31.2-41.9); HEMOGLOBIN 9.9 g/dL (10.9-14.3); LYMPHOCYTES # (AUTO) 1.6 K/uL (0.8-4.8); LYMPHOCYTES % (AUTO) 19.8 % (20.5-51.5); MEAN CORPUSCULAR HEMOGLOBIN 29.9 uug (24.7-32.8); MEAN CORPUSCULAR HGB CONC 33 g/dL (32.3-35.6); MEAN CORPUSCULAR VOLUME 89.8 fL (75.5-95.3); MONOCYTES # (AUTO) 0.7 K/uL (0.1-1.30); MONOCYTES % (AUTO) 7.9 % (0.0-11.0); NEUTROPHILS % (AUTO) 71.8 % (38.5-71.5); PLATELET COUNT (AUTO) 470 K/uL (179-408); RED CELL DISTRIBUTION WIDTH 15.8 % (12.3-17.7); WHITE BLOOD COUNT (AUTO) 8.3 K/uL (3.8-11.8)
[2024-03-30 14:24] LABS: DIFFERENTIAL COMMENT 1
[2024-03-30 14:35] LABS: CALCIUM 8.5 mg/dL (8.5-10.1); CREATININE 1.2 mg/dL (0.6-1.3); POTASSIUM 3.5 mmol/L (3.5-5.1)
[2024-03-30] MEDS: IV NS 1000 ML 1,000 ML IV SCH (15:45)
[2024-03-30] MEDS ORDERED: CEFTRIAXONE 1 G in IV DEXTROSE 5% 50 ML IV SCH (20:30)
[2024-03-30] MEDS ORDERED: CLONAZEPAM 0.5 MG TABLET PO PRN (20:30)
[2024-03-30] MEDS ORDERED: GUAIFENESIN/DEXTROMETHORPHAN 5 ML UDC PO PRN (20:30)
[2024-03-31] MEDS ORDERED: CEFTRIAXONE 1 G in IV DEXTROSE 5% 50 ML IV SCH ×3 (00:56→09:00)
[2024-03-31] MEDS ORDERED: ATORVASTATIN 20 MG TABLET ONE ×2 (03:18→21:06)
[2024-03-31] MEDS: ATORVASTATIN 40 MG TABLET PO SCH (03:25)
[2024-03-31] MEDS ORDERED: IV NS 1000 ML 1,000 ML IV PRN (05:13)
[2024-03-31] MEDS ORDERED: PANTOPRAZOLE SODIUM 40 MG TABLET.DR PO ONE (05:54)
[2024-03-31 05:56] LABS: BASOPHILS % (AUTO) 0.6 % (0.0-2.0); EOSINOPHILS % (AUTO) 0.1 % (0.0-7.0); HEMOGLOBIN 9.7 g/dL (10.9-14.3); LYMPHOCYTES # (AUTO) 1.9 K/uL (0.8-4.8); LYMPHOCYTES % (AUTO) 24.9 % (20.5-51.5); MEAN CORPUSCULAR HEMOGLOBIN 30.2 uug (24.7-32.8); MEAN CORPUSCULAR HGB CONC 34 g/dL (32.3-35.6); MEAN CORPUSCULAR VOLUME 89.8 fL (75.5-95.3); MONOCYTES # (AUTO) 0.6 K/uL (0.1-1.30); MONOCYTES % (AUTO) 7.9 % (0.0-11.0); NEUTROPHILS % (AUTO) 66.5 % (38.5-71.5); PLATELET COUNT (AUTO) 457 K/uL (179-408); RED BLOOD CELL COUNT(AUTO) 3.23 MIL/uL (3.63-4.92); RED CELL DISTRIBUTION WIDTH 15.4 % (12.3-17.7); WHITE BLOOD COUNT (AUTO) 7.6 K/uL (3.8-11.8)
[2024-03-31] MEDS: PANTOPRAZOLE SODIUM 40 MG TABLET.DR PO SCH (06:03)
[2024-03-31 06:04] LABS: DIFFERENTIAL COMMENT 1
[2024-03-31 06:20] LABS: CALCIUM 8.5 mg/dL (8.5-10.1); CREATININE 0.9 mg/dL (0.6-1.3); MAGNESIUM 1.7 mg/dL (1.8-2.4); PHOSPHOROUS 3.2 mg/dL (2.5-4.9); POTASSIUM 3.6 mmol/L (3.5-5.1)
[2024-03-31 06:52] LABS: THYROID STIMULATING HORMONE 1.265 mIU/mL (0.358-3.740)
[2024-03-31] MEDS ORDERED: PANTOPRAZOLE SODIUM 40 MG TABLET.DR PO SCH (07:00)
[2024-03-31] MEDS ORDERED: HEPARIN SODIUM,PORCINE 5,000 UNITS/ML VIAL ONE (08:13)
[2024-03-31] MEDS ORDERED: PROPRANOLOL HCL PO SCH (09:00)
[2024-03-31] MEDS ORDERED: FOLIC ACID 1 MG TABLET PO SCH ×2 (09:00)
[2024-03-31] MEDS ORDERED: CLONAZEPAM 1 MG TABLET PO SCH ×2 (09:00)
[2024-03-31] MEDS ORDERED: ENOXAPARIN SODIUM 40 MG/0.4 ML DISP.SYRIN SQ ONE (09:09)
[2024-03-31] MEDS ORDERED: CEFTRIAXONE /D5W 50ML IVPB **ER PYXIS IV ONE (09:10)
[2024-03-31] MEDS ORDERED: ESCITALOPRAM OXALATE 10 MG TABLET ONE (09:10)
[2024-03-31] MEDS ORDERED: THIAMINE HCL 100 MG TABLET ONE (09:10)
[2024-03-31] MEDS ORDERED: MAGNESIUM OXIDE 400 MG TABLET ONE (09:10)
[2024-03-31] MEDS: THIAMINE HCL 100 MG TABLET PO SCH (09:12)
[2024-03-31] MEDS: ESCITALOPRAM OXALATE 10 MG TABLET PO SCH (09:12)
[2024-03-31] MEDS: CEFTRIAXONE 1 G in IV DEXTROSE 5% 50 ML IV SCH (09:12)
[2024-03-31] MEDS: ENOXAPARIN SODIUM 40 MG/0.4 ML DISP.SYRIN SQ SCH (09:13)
[2024-03-31] MEDS: MAGNESIUM OXIDE 400 MG TABLET PO ONE (09:13)
[2024-03-31 15:53] VITALS: O2SAT 98
[2024-03-31] MEDS ORDERED: CHLO25CA22 PO (16:45)
[2024-03-31] MEDS ORDERED: NITR100C6 PO (16:45)
[2024-03-31] MEDS ORDERED: CHLORDIAZEPOXIDE HCL 25 MG CAPSULE ONE (16:48)
[2024-03-31] MEDS: CHLORDIAZEPOXIDE HCL 25 MG CAPSULE PO SCH (16:50)
[2024-03-31 19:35] VITALS: O2SAT 94
[2024-03-31] MEDS ORDERED: TRAZODONE 50 MG TABLET ONE (21:07)
[2024-03-31] MEDS: TRAZODONE 50 MG TABLET PO SCH (21:12)
== END 2024-03-31 23:23 | DRG 315 ==
LOC: ER 07:58 → TRANSITION 15:00
PROVIDERS: ADMIT Internal Medicine; ATTEND Student in an Organized Health Care Education/Training Program
PROC: 05HD33Z Insertion of Infusion Device into Right Cephalic Vein, Percutaneous Approach (ICD-10-PCS; principal; 2024-03-30)
DX: I95.9 Hypotension, unspecified (principal); N39.0 Urinary tract infection, site not specified; R45.851 Suicidal ideations; T68.XXXA Hypothermia, initial encounter; D50.9 Iron deficiency anemia, unspecified; R41.0 Disorientation, unspecified; E66.9 Obesity, unspecified; Z68.28 Body mass index [BMI] 28.0-28.9, adult; D75.839 Thrombocytosis, unspecified; F31.9 Bipolar disorder, unspecified; F41.9 Anxiety disorder, unspecified; B96.89 Other specified bacterial agents as the cause of diseases classified elsewhere; F10.21 Alcohol dependence, in remission; F19.10 Other psychoactive substance abuse, uncomplicated; Z91.89 Other specified personal risk factors, not elsewhere classified; Z88.0 Allergy status to penicillin; Z88.2 Allergy status to sulfonamides; Z88.8 Allergy status to other drugs, medicaments and biological substances
CPT/HCPCS: 36415; 70450; 71045; 83605; 83735; 84100; 84443; 84484; 85025; 85730; 87040; 94760; A4606; A4663; G0378; G0480; J0696; J1644; J1650; J7040